=== PATIENT | male | born 1990 | race Caucasian/White ===

== ENCOUNTER → 2019-02-26 13:00 | Outpatient (CLI) | payer SELFPAY ==
[2019-02-10 14:41] VITALS: BMI 33.0
--- NOTE | 2019-02-26 13:05 | ECHOD_ITS ---
Reason For Study: Congenital heart disease Procedure This was a 2D Doppler, Color Flow transthoracic echocardiogram. Exam performed in department. Left Ventricle Normal LV size. Left ventricular systolic function is normal. The estimated ejection fraction is 60 %. Normal diastology for age. No regional wall motion abnormalities noted. Right Ventricle Normal RV size. Normal systolic function. Atria Normal left atrium. Normal right atrium. Mitral Valve Normal mitral valve. Tricuspid Valve Normal tricuspid valve. Aortic Valve Normal aortic valve. Trisinus/trileaflet aortic valve. Pulmonic Valve Normal pulmonic valve. Great Vessels Normal aortic root. The pulmonary artery is normal size. Normal inferior vena cava. Pericardium/Pleural No pericardial effusion. MMode/2D Measurements & Calculations LVIDd: 4.8 cm IVSd: 1.1 cm Ao root diam: 3.2 cm LVIDs: 2.9 cm LVPWd: 1.2 cm RVDd: 3.5 cm FS: 39.8 % LAV(MOD-bp): 59.2 ml LA A4 area: 20.1 cm2 LA dimension(2D): 3.2 cm LAV(MOD-bp) Indexed: 27.5 ml/m2 LAV(MOD-sp2): 60.4 ml LAV(MOD-sp4): 58.7 ml RA A4 area: 16.6 cm2 Doppler Measurements & Calculations MV E max basil: 82.4 cm/sec Lat Peak E' Basil: 14.2 cm/sec Med Peak E' Basil: 12.0 cm/sec MV A max basil: 45.7 cm/sec E/E' lat: 5.8 E/E' med: 6.9 MV E/A: 1.8 Ao V2 max: 146.3 cm/sec LV V1 max: 120.7 cm/sec PA V2 max: 118.3 cm/sec Ao max P.6 mmHg LV V1 max P.8 mmHg Interpretation Summary Normal LV size. Left ventricular systolic function is normal. The estimated ejection fraction is 60 %. Normal diastology for age. Structurally normal valves. Ordering Physician: Michael Lynch Referring Physician: Tad Pichardo Performed By: Emely Garcia RDCS
== END ==
PROVIDERS: Family Provider Family Medicine; PCP Family Medicine; Referring Provider Internal Medicine Cardiovascular Disease; Visit Provider Internal Medicine Cardiovascular Disease
DX: Z82.49 Family history of ischemic heart disease and other diseases of the circulatory system (principal); Z15.89 Genetic susceptibility to other disease
CPT/HCPCS: 93306